=== PATIENT | female | born 1960 | race Asian ===

== ENCOUNTER 2016-08-08 07:57 | Outpatient (CLI) | payer OTHER ==
[~2016-08-08 07:57] MED LIST: ASPIRIN CHLD81 MG PO; ATENOLOL100 MG PO; CELEBREX50 MG PO; CLARITIN10 M1 PO; CYCL10TA35 PO; DIOVAN HCT320 MG/25 PO; DULO60CA2 PO; FLUT0.05 NAS; HYDR-2748 PO; METFORMIN ER1000 MG PO; PREDNISONE10 M1 OR; ROPI0.5T PO; VICTOZA18 MG/3 ML SC
[2016-08-08 08:42] LABS: PLATELET COUNT 261 K/uL (152-353)
[2016-08-08 09:44] LABS: POTASSIUM 3.2 mmol/L (3.6-5.2); SODIUM 137 mmol/L (136-145)
== END 2016-08-08 19:05 | disposition home or self-care (01) ==
LOC: LABW 07:57
PROVIDERS: Family Medicine
DX: R00.2 Palpitations (principal); I10 Essential (primary) hypertension; E11.9 Type 2 diabetes mellitus without complications; E66.01 Morbid (severe) obesity due to excess calories; E55.9 Vitamin D deficiency, unspecified
CPT/HCPCS: 36415; 80053; 80061; 81000; 82043; 82306; 82550; 82570; 83036; 83735; 84439; 84443; 84484; 85027; 93005

== ENCOUNTER 2018-04-23 15:52 | Outpatient (CLI) | payer OTHER | END 2018-04-23 20:45 | disposition home or self-care (01) | LOC: RAD 15:52 | DX: R06.02 Shortness of breath (principal) | CPT/HCPCS: 93005 ==

== ENCOUNTER 2018-05-05 12:11 | Outpatient (CLI) | payer OTHER ==
[2018-05-05 12:41] LABS: PLATELET COUNT 233 K/uL (152-353)
[2018-05-05 13:09] LABS: POTASSIUM 3.5 mmol/L (3.6-5.2)
== END 2018-05-05 19:23 | disposition home or self-care (01) ==
LOC: LABW 12:11
PROVIDERS: Family Medicine
DX: M79.669 Pain in unspecified lower leg (principal); I10 Essential (primary) hypertension; R06.02 Shortness of breath; R60.0 Localized edema; R05 Cough
CPT/HCPCS: 36415; 80053; 81000; 83735; 84439; 84443; 85027; Q9963

== ENCOUNTER 2018-08-08 13:57 | Outpatient (CLI) | payer OTHER | END 2018-08-08 20:27 | disposition home or self-care (01) | LOC: MAMMO 13:57 | DX: Z12.31 Encounter for screening mammogram for malignant neoplasm of breast (principal) ==

== ENCOUNTER 2018-12-16 09:01 | Outpatient (CLI) | payer OTHER | END 2018-12-16 20:29 | disposition home or self-care (01) | LOC: NM 09:01 | DX: I10 Essential (primary) hypertension (principal); Z91.89 Other specified personal risk factors, not elsewhere classified; Z79.899 Other long term (current) drug therapy | CPT/HCPCS: A9500; J2785 ==

== ENCOUNTER 2019-01-05 15:49 | Outpatient (CLI) | payer OTHER ==
[2019-01-05 16:03] LABS: PLATELET COUNT 278 K/uL (152-353)
[2019-01-05 16:18] LABS: POTASSIUM 3.9 mmol/L (3.6-5.2)
== END 2019-01-05 19:43 | disposition home or self-care (01) ==
LOC: LABW 15:49
PROVIDERS: Specialist
DX: Z01.810 Encounter for preprocedural cardiovascular examination (principal); R93.1 Abnormal findings on diagnostic imaging of heart and coronary circulation
CPT/HCPCS: 36415; 80053; 85027

== ENCOUNTER 2019-01-12 15:09 | Outpatient (CLI) | payer OTHER ==
[2019-01-12 15:33] LABS: POTASSIUM 3.7 mmol/L (3.6-5.2)
== END 2019-01-12 23:28 | disposition home or self-care (01) ==
LOC: LABW 15:09
PROVIDERS: Nurse Practitioner Adult Health
DX: I10 Essential (primary) hypertension (principal); E11.9 Type 2 diabetes mellitus without complications; Z79.899 Other long term (current) drug therapy
CPT/HCPCS: 36415; 80048

== ENCOUNTER 2020-05-17 09:16 | Outpatient (CLI) | payer OTHER | END 2020-05-17 20:15 | disposition home or self-care (01) | LOC: LAB 09:16 | DX: Z20.828 Contact with and (suspected) exposure to other viral communicable diseases (principal); R05 Cough; J40 Bronchitis, not specified as acute or chronic | CPT/HCPCS: 87635; G2023; U0003 ==

== ENCOUNTER 2020-07-27 09:44 | Outpatient (CLI) | payer OTHER | END 2020-07-27 21:40 | disposition home or self-care (01) | LOC: LABW 09:44 | PROVIDERS: ATTEND Nurse Practitioner Adult Health | DX: I25.10 Atherosclerotic heart disease of native coronary artery without angina pectoris (principal); E78.2 Mixed hyperlipidemia; Z79.899 Other long term (current) drug therapy | CPT/HCPCS: 36415; 80061; 80076 ==

== ENCOUNTER 2021-02-22 08:41 | Outpatient (CLI) | payer OTHER ==
[2021-02-22 09:47] LABS: POTASSIUM 3.6 mmol/L (3.6-5.2)
== END 2021-02-22 15:44 | disposition home or self-care (01) ==
LOC: LABW 08:41
PROVIDERS: ATTEND Nurse Practitioner Adult Health
DX: I25.10 Atherosclerotic heart disease of native coronary artery without angina pectoris (principal); E78.2 Mixed hyperlipidemia; Z79.899 Other long term (current) drug therapy; E11.9 Type 2 diabetes mellitus without complications; G89.4 Chronic pain syndrome; I10 Essential (primary) hypertension; K21.9 Gastro-esophageal reflux disease without esophagitis; E55.9 Vitamin D deficiency, unspecified; R53.83 Other fatigue
CPT/HCPCS: 36415; 80048; 80061; 80076; 81000; 82306; 83036; 83735; 84439; 84443

== ENCOUNTER 2021-11-16 07:51 | Outpatient (CLI) | payer OTHER ==
[2021-11-16 09:51] LABS: PLATELET COUNT 225 K/uL (152-353)
[2021-11-16 10:07] LABS: POTASSIUM 3.6 mmol/L (3.6-5.2)
== END 2021-11-16 21:55 | disposition home or self-care (01) ==
LOC: MAMMO 07:51
PROVIDERS: ATTEND Family Medicine
DX: Z00.00 Encounter for general adult medical examination without abnormal findings (principal); Z12.31 Encounter for screening mammogram for malignant neoplasm of breast; I10 Essential (primary) hypertension; E11.65 Type 2 diabetes mellitus with hyperglycemia; M25.559 Pain in unspecified hip; E55.9 Vitamin D deficiency, unspecified
CPT/HCPCS: 36415; 80053; 80061; 81000; 82306; 83036; 83735; 84443; 84550; 85027

== ENCOUNTER 2022-01-16 08:18 | Outpatient (CLI) | payer OTHER ==
[~2022-01-16] VITALS: Ht 172.7 cm; Wt 144.2 kg
== END 2022-01-16 20:34 | disposition home or self-care (01) ==
LOC: NM 08:18
PROVIDERS: ATTEND Nurse Practitioner
DX: I10 Essential (primary) hypertension (principal); I25.10 Atherosclerotic heart disease of native coronary artery without angina pectoris; E78.2 Mixed hyperlipidemia
CPT/HCPCS: A9500

== ENCOUNTER 2022-09-10 13:07 | Outpatient (CLI) | payer OTHER | END 2022-09-10 21:51 | disposition home or self-care (01) | LOC: RAD 13:07 | PROVIDERS: ATTEND Family Medicine | DX: Z13.820 Encounter for screening for osteoporosis (principal); Z87.81 Personal history of (healed) traumatic fracture; Z09 Encounter for follow-up examination after completed treatment for conditions other than malignant neoplasm ==

== ENCOUNTER 2022-12-31 14:56 | Outpatient (CLI) | payer OTHER | END 2022-12-31 20:12 | disposition home or self-care (01) | LOC: US 14:56 | PROVIDERS: ATTEND Family Medicine | DX: M79.605 Pain in left leg (principal); R60.0 Localized edema ==

== ENCOUNTER 2023-01-08 09:51 | Outpatient (CLI) | payer OTHER ==
[2023-01-08 10:23] LABS: PLATELET COUNT 242 K/uL (152-353)
[2023-01-08 10:26] LABS: POTASSIUM 3.6 mmol/L (3.6-5.2)
== END 2023-01-08 19:08 | disposition home or self-care (01) ==
LOC: LABW 09:51
PROVIDERS: ATTEND Family Medicine
DX: K21.9 Gastro-esophageal reflux disease without esophagitis (principal); I10 Essential (primary) hypertension; E11.65 Type 2 diabetes mellitus with hyperglycemia; E78.49 Other hyperlipidemia; M19.90 Unspecified osteoarthritis, unspecified site; E55.9 Vitamin D deficiency, unspecified
CPT/HCPCS: 36415; 80053; 80061; 81002; 82306; 83036; 83735; 84439; 84443; 84550; 85027